=== PATIENT | female | born 2000 | race African-American/Black ===

== ENCOUNTER 2024-01-28 01:29 | Emergency (ER) | payer OTHER, SELFPAY ==
[~2024-01-28] VITALS: Ht 162.6 cm; Wt 62.0 kg
[2024-01-28 02:31] LABS: BASO % 0.2 % (0.0-1.0); EOS # 0.1 10^3/uL (0.0-0.5); HEMATOCRIT 35.7 % (36.0-47.0); LYMPH # 1.2 10^3/uL (1.5-5.0); LYMPH % 9.6 % (24.0-44.0); MEAN CORPUSCULAR HEMOGLOBIN 26.1 pg (27.0-33.0); MEAN CORPUSCULAR HGB CONC 30.8 g/dl (32.0-36.5); MEAN CORPUSCULAR VOLUME 84.6 fl (80.0-96.0); MONO # 0.6 10^3/uL (0.0-0.8); MONO % 4.8 % (2.0-8.0); NEUTROPHILS # 10.7 10^3/uL (1.5-8.5); NEUTROPHILS % 84.1 % (36.0-66.0); PLATELET COUNT, AUTOMATED 270 10^3/uL (150-450); RED BLOOD COUNT 4.22 10^6/uL (4.00-5.40); WHITE BLOOD COUNT 12.8 10^3/uL (4.0-10.0)
[2024-01-28] MEDS: KETOROLAC 30 MG/ML 1ML VIAL IV ONE (02:45)
[2024-01-28 02:56] LABS: LIPASE 47 U/L (12-53)
[2024-01-28 02:58] LABS: ALBUMIN 3.6 G/DL (3.2-5.2); ALKALINE PHOSPHATASE 96 U/L (46-116); ALT/SGPT < 9 U/L (7.0-40); AST/SGOT < 8 U/L (<34); BILIRUBIN,DIRECT 0.2 MG/DL (<0.4); BILIRUBIN,TOTAL 0.6 MG/DL (0.3-1.2); BLOOD UREA NITROGEN 14 MG/DL (9-23); CALCIUM LEVEL 8.4 MG/DL (8.5-10.1); CARBON DIOXIDE LEVEL 26 MMOL/L (20-31); CHLORIDE LEVEL 107 MMOL/L (98-107); CK-MB VALUE MASS < 1.0 NG/ML (<3.6); CPK CREATINE PHOSPHOKINASE 97 U/L (34-145); CREATININE FOR GFR 0.62 MG/DL (0.55-1.30); GLOMERULAR FILTRATION RATE > 60.0 (>60); GLUCOSE, FASTING 82 MG/DL (60-100); MB/CK RELATIVE INDEX 1.03 (< OR =4); POTASSIUM SERUM 3.5 MMOL/L (3.5-5.1); SODIUM LEVEL 138 MMOL/L (136-145); TOTAL PROTEIN 7.1 G/DL (5.7-8.2)
[2024-01-28 02:59] LABS: THYROID STIMULATING HORMONE 2.083 uIU/ML (0.55-4.78)
[2024-01-28 03:00] LABS: FREE T4 1.09 NG/DL (0.89-1.76)
[2024-01-28 03:06] LABS: HCG, SERUM QUALITATIVE NEGATIVE (NEGATIVE)
[2024-01-28] MEDS ORDERED: ISOVUE-370 76% 100ML VIAL As Ordered ONE (03:10)
[2024-01-28 03:49] LABS: CK-MB VALUE MASS < 1.0 NG/ML (<3.6)
[2024-01-28 03:51] LABS: CPK CREATINE PHOSPHOKINASE 94 U/L (34-145); MB/CK RELATIVE INDEX 1.06 (< OR =4)
[2024-01-28 05:15] VITALS: BP 119/69; TEMP 97.4; O2SAT 98
== END 2024-01-28 05:39 | disposition home or self-care (01) ==
LOC: M ED 01:29
DX: R07.9 Chest pain, unspecified (principal); M94.0 Chondrocostal junction syndrome [Tietze]; R91.1 Solitary pulmonary nodule
CPT/HCPCS: 71045; 71275; 80048; 80076; 82550; 82553; 83690; 84439; 84443; 84484; 84703; 85025; 87486; 87581; 87633; 87798; 93005; 93041; 94760; 96374; 99284; J1885; Q9967

== ENCOUNTER 2024-07-25 15:56 | Emergency (ER) | payer OTHER ==
[~2024-07-25] VITALS: Ht 162.6 cm; Wt 60.3 kg
[2024-07-25 16:07] VITALS: BP 127/79; TEMP 97.8; O2SAT 97
[2024-07-25] MEDS ORDERED: PREN1CHW6 PO (16:09)
== END 2024-07-25 17:19 | disposition left against medical advice (07) ==
LOC: M ED 15:56
DX: Z53.21 Procedure and treatment not carried out due to patient leaving prior to being seen by health care provider (principal)

== ENCOUNTER 2024-07-26 08:22 | Emergency (ER) | payer OTHER ==
[~2024-07-26] VITALS: Ht 162.6 cm; Wt 60.0 kg
[~2024-07-26 08:22] MED LIST: PREN1CHW6 PO
[2024-07-26 08:54] LABS: HEMATOCRIT 40.4 % (36.0-47.0); HEMOGLOBIN 12.1 g/dl (12.0-15.5); MEAN CORPUSCULAR VOLUME 86.9 fl (80.0-96.0); RED BLOOD COUNT 4.65 10^6/uL (4.00-5.40); WHITE BLOOD COUNT 6.9 10^3/uL (4.0-10.0)
[2024-07-26 11:45] VITALS: BP 102/69; O2SAT 100
[2024-07-26 12:01] VITALS: TEMP 98.5
== END 2024-07-26 12:03 | disposition home or self-care (01) ==
LOC: M ED 08:22
DX: O20.9 Hemorrhage in early pregnancy, unspecified (principal); Z3A.01 Less than 8 weeks gestation of pregnancy; Z79.899 Other long term (current) drug therapy